=== PATIENT | female | born 1985 | race Caucasian/White ===

== ENCOUNTER → 2024-09-09 | Outpatient (CLI) | payer MEDICAID, SELFPAY ==
--- NOTE | 2024-09-09 10:16 | MRI_ITS ---
PROCEDURE: LOWER EXT JOINT ONLY (ROUTINE) 09/09/2024 REASON FOR EXAM: PRIOR ACL SURGERY, NEW INJURY TECHNIQUE: MRI of the left knee without contrast COMPARISON: None provided. FINDINGS A very small left knee joint effusion is seen. No Ahmadi's or popliteal cyst is noted. Prior anterior cruciate ligament reconstruction noted. Although posteriorly positioned, it is not apparently torn. The posterior cruciate and collateral ligaments appear intact. Visualized extensor tendons appear intact. No acute osseous signal changes are seen. Moderate tricompartmental degenerative changes are noted. Moderate to severe articular cartilage thinning is seen of the patella, particularly the lateral facet thereof. [id number] areas of articular cartilage thinning are seen of the medial and lateral compartments. No surfacing meniscal tear is identified. MRI/Lower Ext Joint Only (Routine) IMPRESSION: 1. Tricompartmental degenerative changes. 2. Prior anterior cruciate ligament reconstruction. 3. Very small joint effusion. Reading Location: [id number]
== END | disposition home or self-care (01) ==
LOC: MRI 09:56
PROVIDERS: Referring Provider Orthopaedic Surgery Sports Medicine; Visit Provider Orthopaedic Surgery Sports Medicine
DX: M25.562 Pain in left knee (principal)
CPT/HCPCS: 73721